=== PATIENT | female | born 1965 | race Caucasian/White ===

== ENCOUNTER 2019-05-12 06:04 | Day surgery (SDC) | payer OTHER ==
[~2019-05-12] VITALS: Ht 157.5 cm; Wt 68.0 kg
[2019-05-12 06:41] VITALS: BP 128/70
[2019-05-12 16:01] VITALS: BP 117/60
== END 2019-05-12 15:00 | disposition home or self-care (01) ==
LOC: DS 06:04 → EDSTATUS 07:30 → DU 07:30 → DS 07:30
DX: N81.6 Rectocele (principal); N81.10 Cystocele, unspecified; N39.3 Stress incontinence (female) (male); K57.30 Diverticulosis of large intestine without perforation or abscess without bleeding; Z86.73 Personal history of transient ischemic attack (TIA), and cerebral infarction without residual deficits; Z98.51 Tubal ligation status; Z98.891 History of uterine scar from previous surgery; Z79.899 Other long term (current) drug therapy; Z98.890 Other specified postprocedural states
CPT/HCPCS: C1758; J0690; J1170; J2405; J3010